=== PATIENT | female | born 1995 | race Hispanic/Latino ===

== ENCOUNTER 2019-02-14 16:01 | Emergency (ER) | payer SELFPAY ==
[2019-02-14] MEDS ORDERED: diphenhydrAMINE 25 MG CAP ONE (17:42)
== END 2019-02-14 18:22 | disposition home or self-care (01) ==
LOC: EDBD 16:01 → NAV ERS 16:01
DX: B30.9 Viral conjunctivitis, unspecified (principal)
CPT/HCPCS: 99283; Q0163